=== PATIENT | male | born 1975 | race American Indian/Alaskan Native ===

== ENCOUNTER 2017-08-06 19:37 | Emergency (ER) | payer BC ==
[2017-08-06 19:52] VITALS: BP 146/91
--- NOTE | 2017-08-06 20:09 | EDM.PDOC ---
ED HPI GENERAL MEDICAL PROBLEM - General Chief Complaint: Neuro Symptoms/Deficits Stated Complaint: NUMBNESS TO RIGHT SIDE OF FACE Time Seen by Provider: 08/06/17 19:59 Source of Information: Reports: Patient History Limitations: Reports: No Limitations - History of Present Illness INITIAL COMMENTS - FREE TEXT/NARRATIVE: 42-year-old male presents to the ED with reported right hemifacial weakness and numbness and tingling. He appreciates that he isn't able to completely close his right eye over the last 24 hours. He thought it was due to his new contact lenses. However his eye remains prickly burning and dry feeling. He appreciates that when he tries to eat food is running up the right side of his mouth. Food is getting stuck in his right cheek. Difficulty swallowing. GEN visual acuity. He's had a headache behind his right ear traveling up the temporal aspect of his scalp for the last 5 days. Motrin isn't helping much. No significant exposure to cool air. He was ill with stomach flu 6 days ago but improved after a day and a half. Onset: Gradual Onset Date: 08/05/17 Onset Time: 12:00 (First appreciated symptoms yesterday afternoon.) Duration: Day(s): Location: Reports: Face (Right side of his face is weak and numb and tingly.) Quality: Reports: Other (Right facial weakness with numbness and tingling. Headache is constant throbbing and pounding.) Severity: Moderate (It is considered moderate 5 out of 10.) Improves with: Reports: None Worsens with: Reports: None Context: Reports: Other. Denies: Activity, Exercise, Lifting, Sick Contact, Trauma Associated Symptoms: Reports: Loss of Appetite, Malaise, Weakness. Denies: Confusion, Chest Pain, Cough, cough w sputum, Diaphoresis, Fever/Chills, Headaches, Nausea/Vomiting, Rash, Seizure, Shortness of Breath, Syncope Treatments PASTOR: Reports: NSAIDS (As above right hemifacial weakness with numbness and tingling Motrin.) Headache Pain Score (Numeric/FACES): 1 - Related Data Allergies Allergy/AdvReac Type Severity Reaction Status Date / Time aspirin Allergy Stomach Verified 08/06/17 19:47 Upset Home Meds: Home Meds Dexamethasone 4 mg PO BID #10 tablet 08/06/17 [Rx] Mineral Oil/Petrolatum Oint [Lacri-Lube S.O.P Oint] 3.5 gm EYERT BEDTIME #2 tube 08/06/17 [Rx] valACYclovir [Valtrex] 1,000 mg PO TID #21 tab 08/06/17 [Rx] Past Medical History HEENT History: Reports: Impaired Vision Other HEENT History: wears eyeglasses Other Gastrointestinal History: ulcers Genitourinary History: Reports: Other (See Below) Other Genitourinary History: difficulty voiding since back surgery in 07-31-16 Musculoskeletal History: Reports: Back Pain, Chronic - Past Surgical History Other Musculoskeletal Surgeries/Procedures:: fusion L5-S1 4 screws and 2 rods Social & Family History - Family History Family Medical History: Noncontributory Cardiac: Reports: Hypertension Endocrine/Metabolic: Reports: Diabetes, type II - Tobacco Use Smoking Status *Q: Former Smoker Used Tobacco, but Quit: Yes Month Tobacco Last Used: 2004 Second Hand Smoke Exposure: No - Caffeine Use Caffeine Use: Reports: Coffee, Energy Drinks - Alcohol Use Days Per Week of Alcohol Use: 1 Number of Drinks Per Day: 2 Total Drinks Per Week: 2 - Recreational Drug Use Recreational Drug Use: No - Living Situation & Occupation Living situation: Reports: Occupation: Employed ED ROS GENERAL - Review of Systems Review Of Systems: See Below Constitutional: Reports: Malaise, Fatigue. Denies: Fever, Chills, Decreased Appetite, Weight Loss HEENT: Reports: Contact Lenses, Glasses, Other (Right hemifacial weakness with food and fluids). Denies: Dental Pain (Just started wearing contact lenses the last week.), Ear Discharge, Ear Pain, Eye Discharge, Eye Pain, Hearing Loss ( Does wear glasses eyeglasses normally), Nose Pain, Rhinitis, Sinus Problem, Throat Pain, Vertigo, Vision Change Respiratory: Reports: No Symptoms ( drooling out the right side of his mouth.) Cardiovascular: Reports: No Symptoms Endocrine: Reports: No Symptoms GI/Abdominal: Reports: Constipation : Reports: No Symptoms Musculoskeletal: Reports: No Symptoms Skin: Reports: No Symptoms Neurological: Reports: Headache, Numbness, Paresthesia ( The distribution of the seventh cranial nerve right francisca-face. right francisca-face involving the temporal as well as the facial cheek.), Tingling (Right hemicranial headache for about 4-5 days.), Other (No odynophagia.). Denies: Confusion, Dizziness, Trouble Speaking, Difficulty Walking, Weakness, Change in Speech, Gait Disturbance Psychiatric: Reports: No Symptoms ( Drooling right side of face.) Hematologic/Lymphatic: Reports: No Symptoms Immunologic: Reports: No Symptoms ED EXAM, NEURO - Physical Exam Exam: See Below Exam Limited By: No Limitations General Appearance: Alert, WD/WN, No Apparent Distress, Other (Face pulse to the left when he tries to smile. Is also obvious that his right eye is not closing all the way when he blinks.) Eye Exam: Left Eye: Normal Inspection (The right eyelid does not close completely.), Bilateral Eye: Normal Fundi, PERRL, Other (Difficulty closing his right eye completely.) Ears: Other (Has a scar on his right tympanic membrane inferiorly suggestive of previous tympanostomy tube that he states he never recalls having tubes placed. Possible spontaneous perforation in the past) Throat/Mouth: Normal Lips, Normal Teeth, Normal Gums, Normal Oropharynx Head Exam: Atraumatic, Normocephalic, Other (Tenderness along the temporal) Neck: Normal Inspection, Non-Tender, Full Range of Motion Respiratory/Chest: No Respiratory Distress, Lungs Clear, Normal Breath Sounds, No Accessory Muscle Use, Chest Non-Tender Neurological: Alert, Normal Mood/Affect, Normal Dorsiflexion, Normal Plantar Flexion, Normal Gait, Normal Reflexes, No Motor/Sensory Deficits, Oriented x 3, Abnormal Motor (Right seventh cranial nerve palsy with right facial weakness. When he smiles his face pulls to the left side. He also has right-sided orbicularis gayle oculi muscle weakness with inability to close the eye completely.). No: CN II-XII Intact (Has a right seventh cranial nerve palsy.) Extremities: Normal Inspection, Normal Range of Motion, Non-Tender, No Pedal Edema Psychiatric: Normal Affect, Normal Mood Skin Exam: Warm, Dry, Intact, Normal Color, No Rash Course - Vital Signs Last Recorded V/S: Last Vital Signs Temp 36.7 C 08/06/17 19:47 Pulse 87 08/06/17 19:47 Resp 18 08/06/17 19:47 BP 146/91 H 08/06/17 19:47 Pulse Ox 99 08/06/17 19:47 - Radiology Interpretation Free Text/Narrative:: 42-year-old male presents to the ED with right hemifacial weakness numbness and tingling that developed about 36 hours ago. Appreciates inability to close his right eye completely and that his face is pulling to the left side when he smiles. Difficulty eating and chewing and coordinating mouth movements. Drooling out the right side of his mouth with fluids and unable to suck on a straw or whistle. Exam confirms seventh nerve cranial nerve palsy only. Treated for Felder's palsy with nosocomial 1 g 3 times a day for the next 7 days. Based on dexamethasone 4 mg twice a day for 5 days in the hopes of relieving his headache and reduce inflammation of the seventh cranial nerve. He will use Lacri -Lube eye ointment to keep his eye close and is to double patch his eye closed overnight until muscle function returns to normal. Suggest follow-up with personal care physician in 7-10 days time. Departure - Departure Time of Disposition: 20:09 Disposition: Home, Self-Care 01 Condition: Fair Clinical Impression: Right-sided Felder's palsy - Discharge Information Prescriptions: Dexamethasone 4 mg PO BID #10 tablet Mineral Oil/Petrolatum Oint [Lacri-Lube S.O.P Oint] 3.5 gm EYERT BEDTIME #2 tube valACYclovir [Valtrex] 1,000 mg PO TID #21 tab Instructions: Felder Palsy Referrals: PCP,None [Primary Care Provider] - Forms: ED Department Discharge Additional Instructions: Evaluation in the emergency room tonight in regards to development of right hemifacial weakness and numbness and tingling and difficulty closing her right eye. These are all signs and 7 symptoms of seventh nerve cranial palsy which we call Felder's palsy. Some suture usually last anywhere from 7-21 days and then gradually start to improve. Most important part of the illness is that you take your I closed with lubricant at nighttime to make sure cornea does not dry out and get infection. Use Lubriderm op thalamic ointment along the bottom eyelid at nighttime and patch her eye closed with tape overnight. Use artificial tears during the day 2-3 times daily to keep the cornea moistened. Take antiviral medication bowel secondary 1 g 3 times daily for the next 7 days to try and speed up the process of healing and inflammation of the nerve. Dexamethasone 4 mg twice daily to further reduce inflammation of the nerve and hopefully improve her headache as well. Is follow-up with your personal care physician in 7-10 days time.
== END 2017-08-06 20:27 | disposition home or self-care (01) ==
LOC: JD.ED 19:37
DX: G51.0 Bell's palsy (principal); Z87.891 Personal history of nicotine dependence; Z88.6 Allergy status to analgesic agent
CPT/HCPCS: 99283

== ENCOUNTER 2023-02-11 17:39 | Emergency (ER) | payer BC ==
[2023-02-11] MEDS ORDERED: Lactated Ringers 1,000 ML IV ONE (18:12)
[2023-02-11] MEDS ORDERED: Ketorolac 30 MG/ML SDV IVPUSH ONE (18:12)
[2023-02-11 18:14] VITALS: PULSE 100
[2023-02-11 18:33] LABS: BASOPHILS ABSOLUTE AUTO 0.02 K/mm3 (0.01-0.08); BASOPHILS PERCENT AUTO 0.1 % (0.1-1.2); EOSINOPHILS ABSOLUTE AUTO 0.03 K/mm3 (0.04-0.54); EOSINOPHILS PERCENT AUTO 0.2 (0.8-7.0); HEMATOCRIT 46.7 % (40.1-51.0); HEMOGLOBIN 15.7 gm/dl (13.7-17.5); IMMATURE GRAN ABSOLUTE AUTO 0.03 K/mm3 (0.00-0.10); IMMATURE GRAN PERCENT AUTO 0.2 % (<=1.0); LYMPHOCYTES ABSOLUTE AUTO 5.19 K/mm3 (1.32-3.57); LYMPHOCYTES PERCENT AUTO 35.4 % (21.8-53.1); MEAN CORPUSCULAR HGB CONC 33.6 g/dl (32.2-35.5); MEAN CORPUSCULAR VOLUME 86.3 fl (79.0-92.2); MEAN PLATELET VOLUME 10.5 fl (9.4-12.3); MONOCYTES ABSOLUTE AUTO 1.38 K/mm3 (0.30-0.82); MONOCYTES PERCENT AUTO 9.4 % (5.3-12.2); NEUTROPHILS ABSOLUTE AUTO 8.01 K/mm3 (1.78-5.38); NEUTROPHILS PERCENT AUTO 54.7 % (34.0-67.9); PLATELET COUNT,PLT 293 K/mm3 (163-337); RED BLOOD CELL COUNT 5.41 M/mm3 (4.63-6.08); WHITE BLOOD CELL COUNT,WBC 14.66 K/mm3 (4.23-9.07)
[2023-02-11] MEDS ORDERED: Iopamidol 612 MG/ML 100 ML Bottle IVPUSH ONE (18:45)
[2023-02-11 18:49] LABS: APPEARANCE,URINE CLEAR (Clear); BILIRUBIN,URINE NEGATIVE (Negative); COLOR,URINE YELLOW (Yellow); GLUCOSE,URINE NEGATIVE (Negative); KETONES,URINE 1+ (Negative); LEUKOCYTE ESTERASE,URINE NEGATIVE (Negative); NITRITE,URINE NEGATIVE (Negative); OCCULT BLOOD,URINE 2+ (Negative); PH,URINE >=9.0 (5.0-8.0); PROTEIN,URINE 2+ (Negative)
[2023-02-11 18:55] LABS: A/G RATIO 1.2 (1-2); ALANINE AMINOTRANSFERASE,ALT 41 U/L (16-63); ALBUMIN 4.6 g/dl (3.4-5.0); ALKALINE PHOSPHATASE 70 U/L (46-116); ANION GAP 18.4 (5-15); ASPARTATE AMNIOTRANSFERASE,AST 26 U/L (15-37); BILIRUBIN TOTAL 0.6 mg/dL (0.2-1.0); BLOOD UREA NITROGEN,BUN 18 mg/dL (7-18); CALCIUM 9.5 mg/dL (8.5-10.1); CARBON DIOXIDE,CO2 21 mEq/L (21-32); CHLORIDE,CL 101 mEq/L (98-107); CREATININE 1.2 mg/dL (0.7-1.3); ESTIMATED GFR 75 mL/min (>60); GLUCOSE RANDOM 119 mg/dL (70-99); POTASSIUM,K 3.4 mEq/L (3.5-5.1); PROTEIN TOTAL,TP 8.5 g/dl (6.4-8.2); SODIUM,NA 137 mEq/L (136-145)
[2023-02-11 19:01] LABS: BACTERIA,URINE FEW /hpf (FEW); EPITHELIAL CELLS,URINE 0-5 /hpf (0-5); MUCUS,URINE FEW /hpf (FEW); WBC,URINE 0-5 /hpf (0-5)
[2023-02-11 19:04] LABS: SLIDE REVIEW ABNORMAL SMEAR
[2023-02-11 19:09] LABS: LACTIC ACID 3.2 mmol/L (0.4-2.0)
[2023-02-11] MEDS ORDERED: Dextrose 5%-0.9% NaCl 1,000 ML IV SCH (19:30)
[2023-02-12 00:20] VITALS: BP 139/89
== END 2023-02-11 22:30 | disposition home or self-care (01) ==
LOC: JD.ED 17:39
DX: C64.1 Malignant neoplasm of right kidney, except renal pelvis (principal); N13.2 Hydronephrosis with renal and ureteral calculous obstruction; E86.0 Dehydration; Z88.8 Allergy status to other drugs, medicaments and biological substances
CPT/HCPCS: 36415; 71045; 74177; 80053; 81001; 82009; 83605; 83735; 83880; 85025; 86140; 87040; 93005; J1885; J7042; J7120; Q9967; 93010; 96361; 96374; 99284-25; 99285